=== PATIENT | female | born 1990 | race Two or more races ===

== ENCOUNTER 2020-08-27 15:20 | Emergency (ER) | payer BC, OTHER ==
[~2020-08-27] VITALS: Ht 149.9 cm; Wt 72.6 kg
[2020-08-27] MEDS ORDERED: ASPirin 81 mg TAB PO ONE (16:15)
[2020-08-27 16:56] LABS: Basophils # (auto) 0.1 10 ^3/uL (0-0.2); Eosinophils # (auto) 0.2 10 ^3/uL (0-0.8); Eosinophils % (auto) 1.5 % (0.0-7.0); Hematocrit 42.5 % (36.0-46.0); Hemoglobin 14.5 g/dL (12.2-16.2); Lymphocytes # (auto) 2.7 10 ^3/uL (0.4-5.4); Lymphocytes % (auto) 21.6 % (10.0-50.0); Mean Corpuscular Hgb Conc. 34.1 g/dL (32.0-36.0); Mean Corpuscular Volume 85.1 fL (80.0-100.0); Monocytes # (auto) 0.7 10 ^3/uL (0-1.3); Monocytes % (auto) 5.4 % (0.0-12.0); Neutrophils # (auto) 8.9 10 ^3/uL (1.6-8.6); Neutrophils % (auto) 70.5 % (37.0-80.0); Nucleated Red Blood Cells % 0.1 %; Platelet Count (auto) 412 10^3/uL (140-450); Red Cell Distribution Width 13.3 % (11.8-14.3); White Blood Cell 12.5 10^3/uL (4.4-10.8)
[2020-08-27 17:15] LABS: Alanine Aminotransferase 34 U/L (13-56); Anion Gap 4 (5-15); Blood Urea Nitrogen 11 mg/dL (7-18); Calcium 8.8 mg/dL (8.5-10.1); Carbon Dioxide 27 mmol/L (21-32); Chloride 108 mmol/L (98-107); Glucose 93 mg/dL (74-106); Potassium 3.6 mmol/L (3.5-5.1); Sodium 139 mmol/L (136-145)
[2020-08-27 17:20] LABS: Alkaline Phosphatase 93 U/L (45-117); Aspartate Aminotransferase 13 U/L (15-37); Bilirubin, Total 0.3 mg/dL (0.2-1.0); GFR African American 150 mL/min; GFR Non-African American 124 mL/min; Total Protein 7.6 g/dL (6.4-8.2)
[2020-08-27 18:13] VITALS: BP 116/59
== END 2020-08-27 18:36 | disposition home or self-care (01) ==
LOC: ER 15:20
DX: R00.2 Palpitations (principal)
CPT/HCPCS: 36415; 80053; 84443; 84484; 85025; 93005

== ENCOUNTER 2021-06-26 20:53 | Emergency (ER) | payer SELFPAY ==
[~2021-06-26] VITALS: Ht 149.9 cm; Wt 74.8 kg
[2021-06-26 21:32] LABS: Basophils # (auto) 0 10 ^3/uL (0-0.2); Basophils % (auto) 0.4 % (0.0-2.0); Eosinophils # (auto) 0 10 ^3/uL (0-0.8); Eosinophils % (auto) 0.5 % (0.0-7.0); Hematocrit 41.5 % (36.0-46.0); Hemoglobin 14.5 g/dL (12.2-16.2); Lymphocytes # (auto) 0.5 10 ^3/uL (0.4-5.4); Lymphocytes % (auto) 4.8 % (10.0-50.0); Mean Corpuscular Volume 82.7 fL (80.0-100.0); Monocytes # (auto) 0.4 10 ^3/uL (0-1.3); Monocytes % (auto) 3.5 % (0.0-12.0); Neutrophils # (auto) 9.7 10 ^3/uL (1.6-8.6); Neutrophils % (auto) 90.8 % (37.0-80.0); Nucleated Red Blood Cells % 0.1 %; Red Blood Cells 5.01 10^6/uL (4.0-5.20); Red Cell Distribution Width 13.3 % (11.8-14.3); White Blood Cell 10.6 10^3/uL (4.4-10.8)
[2021-06-26 21:55] LABS: Albumin 3.9 g/dL (3.4-5.0); Calcium 8.3 mg/dL (8.5-10.1); Potassium 3.6 mmol/L (3.5-5.1)
[2021-06-26 22:00] LABS: BUN/Creatinine Ratio 17.6; Bilirubin, Total 0.4 mg/dL (0.2-1.0); Total Protein 7.4 g/dL (6.4-8.2)
[2021-06-27 00:17] VITALS: BP 118/71
[2021-06-27] MEDS ORDERED: PRED20TA2 PO (00:23)
[2021-06-27] MEDS ORDERED: AZIT250T9 PO (00:23)
[2021-06-27] MEDS ORDERED: ALBUAER3 IN (00:23)
== END 2021-06-27 00:39 | disposition home or self-care (01) ==
LOC: ER 20:55 → EEVIPCON 20:55 → ER 06-27 00:39
DX: R07.89 Other chest pain (principal); J20.9 Acute bronchitis, unspecified; J90 Pleural effusion, not elsewhere classified; Z90.710 Acquired absence of both cervix and uterus
CPT/HCPCS: 36415; 71260; 74177; 80053; 83690; 84484; 85025; 93005

== ENCOUNTER 2021-11-22 02:38 | Emergency (ER) | payer BC ==
[~2021-11-22] VITALS: Ht 149.9 cm; Wt 81.8 kg
[~2021-11-22 02:38] MED LIST: ALBUAER3 IN; AZIT250T9 PO; PRED20TA2 PO
[2021-11-22] MEDS ORDERED: SODIUM CHLORIDE 0.9% 1,000 ML IV ONE (03:30)
[2021-11-22] MEDS ORDERED: HYDROmorphone HCL 2 MG/ML VL/or syr IV ONE (03:30)
[2021-11-22] MEDS ORDERED: ONDANSETRON HCL 4 MG/2 ML VIAL IV ONE ×2 (03:30→05:15)
[2021-11-22 05:11] LABS: Basophils # (auto) 0.1 10 ^3/uL (0-0.2); Basophils % (auto) 0.9 % (0.0-2.0); Eosinophils # (auto) 0.1 10 ^3/uL (0-0.8); Eosinophils % (auto) 0.9 % (0.0-7.0); Hematocrit 41.7 % (36.0-46.0); Hemoglobin 13.9 g/dL (12.2-16.2); Lymphocytes % (auto) 16.3 % (10.0-50.0); Mean Corpuscular Hgb Conc. 33.4 g/dL (32.0-36.0); Monocytes # (auto) 0.5 10 ^3/uL (0-1.3); Monocytes % (auto) 4.3 % (0.0-12.0); Neutrophils # (auto) 9.4 10 ^3/uL (1.6-8.6); Neutrophils % (auto) 77.6 % (37.0-80.0); Red Blood Cells 4.97 10^6/uL (4.0-5.20); Red Cell Distribution Width 13.5 % (11.8-14.3); White Blood Cell 12.2 10^3/uL (4.4-10.8)
[2021-11-22] MEDS ORDERED: diazePAM 5 MG TAB PO ONE (05:15)
[2021-11-22 05:31] LABS: Albumin 4.5 g/dL (3.4-5.0); BUN/Creatinine Ratio 20.9; Calcium 9.2 mg/dL (8.5-10.1); Potassium 3.7 mmol/L (3.5-5.1)
[2021-11-22 05:34] LABS: Bilirubin, Total 0.4 mg/dL (0.2-1.0); Total Protein 7.7 g/dL (6.4-8.2)
[2021-11-22 07:35] VITALS: BP 125/73
== END 2021-11-22 07:05 | disposition home or self-care (01) ==
LOC: ER 02:38 → EEVIPCON 02:38 → ER 07:05
DX: G43.909 Migraine, unspecified, not intractable, without status migrainosus (principal); Z90.710 Acquired absence of both cervix and uterus
CPT/HCPCS: 36415; 70450; 80053; 85025; 96361; 96374; 96375; 96376; 99284; J1170; J2405; J7030

== ENCOUNTER 2021-12-27 02:08 | Emergency (ER) | payer BC ==
[~2021-12-27] VITALS: Ht 149.9 cm; Wt 86.9 kg
[2021-12-27 02:35] VITALS: BP 130/57
[2021-12-27] MEDS ORDERED: ONDANSETRON ODT 4 MG TAB PO ONE (03:00)
[2021-12-27] MEDS ORDERED: KETOROLAC TROMETH 30 MG/ML 1ML VIAL IV ONE (03:00)
== END 2021-12-27 03:28 | disposition home or self-care (01) ==
LOC: ER 02:08
DX: G44.209 Tension-type headache, unspecified, not intractable (principal); Z90.710 Acquired absence of both cervix and uterus
CPT/HCPCS: 96374; 99283; J1885; Q0162

== ENCOUNTER 2022-01-20 01:44 | Emergency (ER) | payer BC ==
[~2022-01-20] VITALS: Ht 149.9 cm; Wt 81.0 kg
[2022-01-20 01:45] VITALS: BP 123/86
[2022-01-20] MEDS ORDERED: methylPREDNISolone SOD SUCC 125 MG/2 ML VL IM ONE (04:45)
[2022-01-20] MEDS ORDERED: cefTRIAXone SOD 1,000 MG VL IM ONE (04:45)
[2022-01-20] MEDS ORDERED: DOXY-286 PO (04:49)
[2022-01-20] MEDS ORDERED: PRED20TA2 PO (04:49)
== END 2022-01-20 05:24 | disposition home or self-care (01) ==
LOC: ER 01:46 → EEVIPCON 01:46 → ER 05:24
DX: J20.9 Acute bronchitis, unspecified (principal)
CPT/HCPCS: 71045; 96372; 99284; J0696; J2930

== ENCOUNTER 2022-06-26 02:26 | Emergency (ER) | payer BC ==
[~2022-06-26] VITALS: Ht 149.9 cm; Wt 88.4 kg
[~2022-06-26 02:26] MED LIST changes: +DOXY-286 PO
[2022-06-26 02:49] LABS: Basophils # (auto) 0.1 10 ^3/uL (0-0.2); Basophils % (auto) 0.9 % (0.0-2.0); Eosinophils # (auto) 0.1 10 ^3/uL (0-0.8); Eosinophils % (auto) 0.7 % (0.0-7.0); Hematocrit 42.2 % (36.0-46.0); Hemoglobin 14.4 g/dL (12.2-16.2); Lymphocytes # (auto) 3.6 10 ^3/uL (0.4-5.4); Lymphocytes % (auto) 23.5 % (10.0-50.0); Mean Corpuscular Hemoglobin 28.8 pg (28.0-32.0); Mean Corpuscular Hgb Conc. 34.2 g/dL (32.0-36.0); Mean Corpuscular Volume 84.2 fL (80.0-100.0); Monocytes # (auto) 0.7 10 ^3/uL (0-1.3); Monocytes % (auto) 4.7 % (0.0-12.0); Neutrophils # (auto) 10.7 10 ^3/uL (1.6-8.6); Neutrophils % (auto) 70.2 % (37.0-80.0); Nucleated Red Blood Cells % 0.1 %; Red Blood Cells 5.01 10^6/uL (4.0-5.20); Red Cell Distribution Width 13.2 % (11.8-14.3); White Blood Cell 15.3 10^3/uL (4.4-10.8)
[2022-06-26 03:08] LABS: Albumin 4.2 g/dL (3.4-5.0); BUN/Creatinine Ratio 21.1; Calcium 9.9 mg/dL (8.5-10.1); Magnesium 2.3 mg/dL (1.6-2.6)
[2022-06-26 03:11] LABS: Bilirubin, Total 0.3 mg/dL (0.2-1.0); Total Protein 7.5 g/dL (6.4-8.2)
[2022-06-26] MEDS ORDERED: IOHEXOL 350 MG/ML 100ML IJ ONE (06:02)
[2022-06-26] MEDS ORDERED: KETOROLAC TROMETH 30 MG/ML 1ML VIAL IV ONE (07:15)
[2022-06-26 08:38] VITALS: BP 136/77
== END 2022-06-26 08:44 | disposition home or self-care (01) ==
LOC: EEVIPCON 02:26 → ER 02:26
DX: R07.89 Other chest pain (principal); D72.829 Elevated white blood cell count, unspecified; Z90.710 Acquired absence of both cervix and uterus; Z88.6 Allergy status to analgesic agent; Z79.899 Other long term (current) drug therapy
CPT/HCPCS: 36415; 71045; 71275; 80053; 83735; 83880; 84484; 85025; 85379; 93005; 96374; 99285; J1885; Q9967

== ENCOUNTER 2022-08-21 00:33 | Emergency (ER) | payer BC ==
[~2022-08-21] VITALS: Ht 149.9 cm; Wt 89.6 kg
[2022-08-21] MEDS ORDERED: predniSONE 20 MG TAB PO ONE (01:00)
[2022-08-21] MEDS ORDERED: ACYCLOVIR 400 MG TAB PO ONE (01:00)
[2022-08-21] MEDS ORDERED: SODIUM CHLORIDE 0.9% 1,000 ML IV ONE (01:00)
[2022-08-21] MEDS ORDERED: IOHEXOL 350 MG/ML 100ML IJ ONE (01:05)
[2022-08-21 01:12] LABS: Basophils # (auto) 0.1 10 ^3/uL (0-0.2); Basophils % (auto) 1.1 % (0.0-2.0); Eosinophils # (auto) 0.2 10 ^3/uL (0-0.8); Eosinophils % (auto) 1.7 % (0.0-7.0); Hematocrit 41.9 % (36.0-46.0); Hemoglobin 14.4 g/dL (12.2-16.2); Lymphocytes # (auto) 3.5 10 ^3/uL (0.4-5.4); Lymphocytes % (auto) 28.2 % (10.0-50.0); Mean Corpuscular Hgb Conc. 34.4 g/dL (32.0-36.0); Mean Corpuscular Volume 84.2 fL (80.0-100.0); Monocytes # (auto) 0.6 10 ^3/uL (0-1.3); Monocytes % (auto) 4.6 % (0.0-12.0); Neutrophils % (auto) 64.4 % (37.0-80.0); Nucleated Red Blood Cells % 0.2 %; Red Blood Cells 4.98 10^6/uL (4.0-5.20); Red Cell Distribution Width 13.1 % (11.8-14.3); White Blood Cell 12.4 10^3/uL (4.4-10.8)
[2022-08-21 01:27] LABS: Albumin 4.2 g/dL (3.4-5.0); BUN/Creatinine Ratio 21.4 (10.0-20.0); Calcium 9.4 mg/dL (8.5-10.1); Potassium 3.8 mmol/L (3.5-5.1)
[2022-08-21 01:30] LABS: Bilirubin, Total 0.3 mg/dL (0.2-1.0); Total Protein 7.6 g/dL (6.4-8.2)
[2022-08-21] MEDS ORDERED: [UNRECOGNIZED DRUG - CODE] EX (02:22)
[2022-08-21] MEDS ORDERED: PRED20TA2 PO (02:22)
[2022-08-21] MEDS ORDERED: VALA500T33 PO (02:22)
[2022-08-21 03:50] VITALS: BP 137/68
[2022-08-21 03:54] LABS: Urine Bacteria NONE SEEN /hpf (None Seen); Urine Blood Negative /uL (Negative); Urine Specific Gravity 1.033 (1.001-1.035); Urine WBC 4 /hpf (0 - 5)
== END 2022-08-21 04:03 | disposition home or self-care (01) ==
LOC: ER 00:33 → EEVIPCON 00:33 → ER 03:50
DX: G51.0 Bell's palsy (principal); Z90.710 Acquired absence of both cervix and uterus
CPT/HCPCS: 36415; 70496; 71045; 80053; 81001; 82962; 84484; 85025; 96360; 99285; J7030; J7512; Q9967

== ENCOUNTER 2023-10-02 01:43 | Inpatient (IN) | payer BC ==
[~2023-10-02] VITALS: Ht 149.9 cm; Wt 81.8 kg
[2023-10-02] VITALS (7 sets, daily range): BP systolic 109–123; BP diastolic 60–80; PULSE 70–92; RESP 15–18; TEMP 97.6–98.3; O2SAT 90–99
[~2023-10-02 01:43] MED LIST changes: +AZIT-43 PO; -AZIT250T9 PO; +COR10OTS OT; +METO-281 PO; +NITR-87 PO; +VALA500T33 PO; +ZOFR4T PO; +[UNRECOGNIZED DRUG - CODE] EX
[2023-10-02 02:44] LABS: Basophils # (auto) 0.2 10 ^3/uL (0-0.2); Basophils % (auto) 1.2 % (0.0-2.0); Eosinophils # (auto) 0.2 10 ^3/uL (0-0.8); Eosinophils % (auto) 1.6 % (0.0-7.0); Hematocrit 40.8 % (36.0-46.0); Hemoglobin 13.8 g/dL (12.2-16.2); Lymphocytes % (auto) 24.2 % (10.0-50.0); Mean Corpuscular Hemoglobin 28.3 pg (28.0-32.0); Mean Corpuscular Volume 83.4 fL (80.0-100.0); Monocytes # (auto) 0.7 10 ^3/uL (0-1.3); Monocytes % (auto) 5.7 % (0.0-12.0); Neutrophils # (auto) 8.3 10 ^3/uL (1.6-8.6); Neutrophils % (auto) 67.3 % (37.0-80.0); Red Blood Cells 4.89 10^6/uL (4.0-5.20); Red Cell Distribution Width 13.3 % (11.8-14.3); White Blood Cell 12.4 10^3/uL (4.4-10.8)
[2023-10-02 02:55] LABS: Chloride 106 mmol/L (98-107); Potassium 3.9 mmol/L (3.5-5.1); Sodium 139 mmol/L (136-145)
[2023-10-02 02:56] LABS: Anion Gap 5 (5-15); Carbon Dioxide 28 mmol/L (20-30)
[2023-10-02 03:01] LABS: BUN/Creatinine Ratio 13.1 (10.0-20.0); Blood Urea Nitrogen 8 mg/dL (9-23); Glucose 98 mg/dL (74-106)
[2023-10-02] MEDS: IBUPROFEN 600 MG TAB PO ONE (04:02)
[2023-10-02] MEDS ORDERED: ONDANSETRON HCL 4 MG/2 ML VIAL IV PRN (04:45)
[2023-10-02] MEDS ORDERED: NITROGLYCERIN 0.4 MG SL TAB SL PRN (04:45)
[2023-10-02] MEDS ORDERED: HYDROcodone-ACET 5/325MG TAB PO PRN (04:45)
[2023-10-02] MEDS ORDERED: MORPHINE SULFATE INJ 2 MG/ml SYRG IV PRN (04:45)
[2023-10-02] MEDS ORDERED: DOCUSATE SOD 100 MG CAP PO PRN (04:45)
[2023-10-02] MEDS: SODIUM CHLOR 0.9% PF (SALINE LOCK) 10ML VIAL/SYR IV SCH (05:12)
[2023-10-02] MEDS ORDERED: MECLIZINE HCL 25 MG TAB PO PRN (06:15)
[2023-10-02] MEDS: cefTRIAXone 1GM/50ML D5W 50 ML IV ONE (06:45)
[2023-10-02 08:20] LABS: Urine Bacteria None Seen /hpf (None Seen)
[2023-10-02 08:30] LABS: Urine Blood Negative /uL (Negative); Urine Clarity Clear (Clear); Urine Color Light-Yellow (Yellow); Urine Mucus FEW (None Seen); Urine Protein, UAD Negative (Negative); Urine Urobilinogen Normal (Negative); Urine WBC 1 /hpf (0 - 5)
[2023-10-02] MEDS: IBUPROFEN 600 MG TAB PO PRN (17:20)
[2023-10-03] MEDS ORDERED: cefTRIAXone 1GM/50ML D5W 50 ML IV SCH (06:00)
== END 2023-10-02 21:20 | disposition home or self-care (01) | DRG 310 ==
LOC: EEVIPCON 01:43 → ER 01:43 → TELE 04:44 → TELE-WESTW 13:59
PROVIDERS: ADMIT Nurse Practitioner Family; ATTEND Nurse Practitioner Family
DX: I49.1 Atrial premature depolarization (principal); J45.909 Unspecified asthma, uncomplicated; D72.829 Elevated white blood cell count, unspecified; E66.9 Obesity, unspecified; G51.0 Bell's palsy; Z90.710 Acquired absence of both cervix and uterus; Z68.36 Body mass index [BMI] 36.0-36.9, adult
CPT/HCPCS: 36415; 80048; 81001; 82962; 83735; 83880; 84443; 84484; 85025; 93005; 93306; G0378

== ENCOUNTER 2024-08-04 04:23 | Emergency (ER) | payer BC ==
[2024-08-04 04:25] VITALS: PULSE 88; RESP 18; TEMP 98.4; O2SAT 98
--- NOTE | 2024-08-04 04:38 | ED.PDOC ---
History of Present Illness HPI Comments 34-year-old female who came to ER for headaches. Patient has been having recurrent episodes of headaches, diffuse, pressure, associated with nausea and photophobia. Motrin and Tylenol taken providing temporary relief. Persistence brought the patient to come to the ER Chief Complaint: Headaches Time Seen by MD: 04:37 Primary Care Provider: MICHAEL Reviewed Notes: Nurses Notes Allergies: Coded Allergies: No Known Drug Allergy (Verified Allergy, Unknown, 08/04/24) Home Meds Active Scripts Zzuhoxhf-Evgqnvcfz-Qg (Otic) (Cortisporin Otic Soln) [address], 4 DROP OT QID for 7 Days, #1 BOTTLE 0 Refills Prov:MARIANELA JAMESP 07/18/23 Metoclopramide Hcl (Reglan) 10 Mg Tab, 10 MG PO TIDPRN PRN for 10 Days, #30 TAB Prov:MARY MAURICE DO 04/25/23 Metoclopramide Hcl (Reglan) 10 Mg Tab, 10 MG PO Q6HP PRN, #20 TAB Prov:ELENA DIXON PAC 04/25/23 Ondansetron Odt 4MG Tab (ZOFRAN PO) 4 Mg Tb, 4 MG PO Q6HP PRN, #20 TAB ODT TAB-DISSOLVE IN MOUTH, THEN SWALLOW Prov:ELENA DIXON PAC 04/25/23 Nitrofurantoin Monohydrate Mac (Macrobid) 100 Mg Cap, 100 MG PO BID for 7 Days, #14 CAP 0 Refills Prov:ERVIN LOWE 08/28/22 Valacyclovir Hcl (Valacyclovir Hcl) 500 Mg Tab, 2 TAB PO TID for 7 Days, #42 TAB 11 Refills Prov:JESIKA DOUGLAS MD 08/21/22 Prednisone (Prednisone) 20 Mg Tab, 60 MG PO DAILY for 7 Days, #21 MG Prov:JESIKA DOUGLAS MD 08/21/22 Eyelid Lubricants (Tears Again Advanced Eyel) 1 Liq Liq, 1 DROP EX Q2HP PRN for 7 Days, #1 BOTTLE Prov:JESIKA DOUGLAS MD 08/21/22 Prednisone (Prednisone) 20 Mg Tab, 20 MG PO BID for 5 Days, #10 MG 0 Refills Prov:VARGAS MEDRANO 01/20/22 Doxycycline Hyclate (DOXYCYCLINE HYCLATE) 100 Mg Tab, 1 TAB PO BID for 7 Days, #14 TAB 0 Refills Prov:VARGAS MEDRANO 01/20/22 Albuterol Sulfate (VENTOLIN MDI) 90 Mcg Ih, 90 MCG IN Q6HP PRN for 15 Days, #1 MCG Prov:ANA HIDALGO MD 06/27/21 Azithromycin (Azithromycin) 250 Mg Tab, 250 MG PO DAILY for 6 Days, #6 CAP Prov:ANA HIDALGO MD 06/27/21 Prednisone (Prednisone) 20 Mg Tab, 20 MG PO TID for 4 Days, #12 MG Prov:ANA HIDALGO MD 06/27/21 Information Source: Patient Mode of Arrival: Ambulatory Severity: Moderate Timing: Hours Duration: Intermittent Past Medical History PAST MEDICAL HISTORY: Denies Past Medical History (Other): Gilbert's palsy Surgical History: Hysterectomy 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 Family History Family History: Reviewed,noncontributory to illness Social History Smoker: Non-Smoker Alcohol: Denies ETOH Use Drugs: Denies Drug Use Lives In: Home Constitutional: denies: chills, diaphoresis, fatigue, fever, malaise, sweats, weakness, others EENTM: reports: blurred vision; denies: double vision, ear bleeding, ear discharge, ear drainage, ear pain, ear ringing, eye pain, eye redness, hearing loss, mouth pain, mouth swelling, nasal discharge, nose bleeding, nose congestion, nose pain, photophobia, tearing, throat pain, throat swelling, voice changes, others Respiratory: denies: cough, hemoptysis, orthopnea, SOB at rest, shortness of breath, SOB with excertion, stridor, wheezing, others Cardiovascular: denies: chest pain, dizzy spells, diaphoresis, Dyspnea on exertion, edema, irregular heart beat, left arm pain, lightheadedness, palpitations, PND, syncope, others Gastrointestinal: reports: nausea; denies: abdomen distended, abdominal pain, blood streaked bowels, constipated, diarrhea, dysphagia, difficulty swallowing, hematemesis, melena, poor appetite, poor fluid intake, rectal bleeding, rectal pain, vomiting, others Genitourinary: denies: abnormal vagina bleeding, burning, dyspareunia, dysuria, flank pain, frequency, hematuria, incontinence, pain, , vagina discharge, urgency, others Neurological: reports: headache; denies: dizziness, fainting, left sided numbness, left sided weakness, numbness, paresthesia, pre-existing deficit, right sided numbness, right sided weakness, seizure, speech problems, tingling, tremors, weakness, others Musculoskeletal: denies: back pain, gout, joint pain, joint swelling, muscle pain, muscle stiffness, neck pain, others Integumetry: denies: bruises, change in color, change in hair/nails, dryness, laceration, lesions, lumps, rash, wounds, others Allergic/Immunocompromised: denies: Difficulty Healing, Frequent Infections, Hives, Itching, others Hematologic/Lymphatic: denies: anemia, blood clots, easy bleeding, easy bruising, swollen glands, others Endocrine: denies: excessive hunger, excessive sweating, excessive thirst, excessive urination, flushing, intolerance to cold, intolerance to heat, unexplained weight gain, unexplained weight loss, others Psychiatric: denies: anxiety, bipolar disorder, depression, hopeless, panic disorder, schizophrenia, sleepless, suicidal, others Physical Exam General Appearance: No Apparent Distress, Normal HEENT: Normal ENT Inspection, Pharynx Normal, TMs Normal Neck: Full Range of Motion, Non-Tender, Normal, Normal Inspection Respiratory: Chest Non-Tender, Lungs Clear, No Accessory Muscle Use, No Respiratory Distress, Normal Breath Sounds Cardiovascular: No Edema, No JVD, No Murmur, No Gallop, Normal Peripheral Pulses, Regular Rate/Rhythm Breast Exam: Deferred Gastrointestinal: No Organomegaly, Non Tender, No Pulsatile Mass, Normal Bowel Sounds, Soft Genitalia: Deferred Pelvic: Deferred Rectal: Deferred Extremities: No calf tenderness, Normal capillary refill, Normal inspection, Normal range of motion, Non-tender, No pedal edema Musculoskeletal : Apperance: Normal Neurologic: Alert, industrial automation engineer II-XII nml as Tested, No Motor Deficits, Normal Affect, Normal Mood, No Sensory Deficits Cerebellar Function: Normal Reflexes: Normal Skin: Dry, Normal Color, Warm Lymphatic: No Adenopathy Was a procedure done? Was a procedure done?: No Differential Dx Considerations may include: Migraine headaches, tension headaches, X-Ray, Labs, Meds, VS Vital Signs Date Time Temp Pulse Resp B/P (MAP) Pulse Ox O2 Delivery O2 Flow Rate FiO2 08/04/24 05:01 83 16 108/45 (66) 96 08/04/24 04:55 83 13 115/46 (69) 96 08/04/24 04:25 98.4 88 18 141/74 (96) 98 98.4 08/04/24 04:25 88 18 98 Room Air* 0 21 Current Medications Medications (Trade) Dose Ordered Sig/Nba Route Start Time Stop Time Status Last Admin Sodium Chloride 1,000 ml @ 1,000 mls/hr Q1H ONCE IV 08/04/24 04:30 08/04/24 05:29 DC 08/04/24 04:39 Metoclopramide HCl (Reglan Injection) 10 mg ONCE ONCE IV 08/04/24 04:30 08/04/24 04:31 DC 08/04/24 04:39 Ketorolac Tromethamine (Toradol Injection) 15 mg ONCE ONCE IV 08/04/24 04:30 08/04/24 04:31 DC 08/04/24 04:39 Acetaminophen (Tylenol Tablet) 650 mg ONCE ONCE PO 08/04/24 04:30 08/04/24 04:31 DC 08/04/24 04:45 Dexamethasone Sodium Phosphate (Decadron Injection) 10 mg ONCE ONCE IV 08/04/24 04:30 08/04/24 04:31 DC 08/04/24 04:39 Magnesium Sulfate/ Dextrose 100 ml @ 100 mls/hr Q1H IV 08/04/24 04:30 08/04/24 06:29 08/04/24 05:38 Time of 1ST Reevaluation: 04:31 Reevaluation 1ST: Unchanged Patient Education/Counseling: Diagnosis, Treatment Family Education/Counseling: No Family Present Departure 1 Departure Time of Disposition: 05:57 (Patient likely with a migraine. Patient is feeling better would like to go home. We will discharge patient home with outpatient follow up) Impression: Primary Impression: Migraine headache Qualified Codes: G43.109 - Migraine with aura, not intractable, without status migrainosus Disposition: 01 HOME / SELF CARE / HOMELESS Condition: Stable Referrals: FERNANDO GALAN MD Additional Instructions: You likely had a migraine. You received medications in the ER. You can take tylenol and motrin as needed for pain. You should stay well rested and well hydrated. It is important to follow up with your regular doctor within one week. If your symptoms worsen or you have any other concerns then please return to the ER. Discharged With: Self Critical Care Note Critical Care Time?: No Stability Stability form required: No Heart Score Heart Score: Heart Score Response (Comments) Value History N/A 0 EKG N/A 0 Age N/A 0 Risk Factors N/A 0 Troponin N/A 0 Total 0 I personally scribed for TRESSA LEE MD ([facility]) on 08/04/24 at 04:38. Electronically submitted by Sunil Beach ([employer]). I personally scribed for TRESSA LEE MD ([facility]) on 08/04/24 at 04:43. Electronically submitted by Sunil Beach ([facility]). TRESSA LEE MD Aug 04, 2024 04:38
[2024-08-04] MEDS: KETOROLAC TROMETH 30 MG/ML 1ML VIAL IV ONE (04:39)
[2024-08-04] MEDS: DexAMETHasone SOD PHOS 10MG/1ML VIAL INJ IV ONE (04:39)
[2024-08-04] MEDS: SODIUM CHLORIDE 0.9% 1,000 ML IV ONE (04:39)
[2024-08-04] MEDS: METOCLOPRAMIDE HCL 5MG/ml INJ 2ml VIAL IV ONE (04:39)
[2024-08-04] MEDS: MAGNESIUM SULFATE 1GM/100ML 100 ML IV SCH (04:44)
[2024-08-04] MEDS: ACETAMINOPHEN 325 MG TAB PO ONE (04:45)
[2024-08-04 05:01] VITALS: BP 108/45; PULSE 83; RESP 16; O2SAT 96
== END 2024-08-04 06:48 | disposition home or self-care (01) ==
LOC: EEVIPCON 04:23 → ER 04:23
DX: G43.109 Migraine with aura, not intractable, without status migrainosus (principal); Z90.710 Acquired absence of both cervix and uterus
CPT/HCPCS: 96365; 96366; 96375; 99284; J1100; J1885; J2765; J3475; J7030; 96361

== ENCOUNTER 2024-08-26 09:00 | Emergency (ER) | payer BC ==
[~2024-08-26] VITALS: Ht 149.9 cm; Wt 90.0 kg
--- NOTE | 2024-08-26 09:19 | ECG ---
[facility] Test Date: 2024-08-26 Test Time: 09:06:44 Pat Name: FERNANDO WILSON Department: ER Room: Gender: F Wedger Machine: RUBIA : 1990 Requested By: YAIMA MENON Order Number: [id number] Reading MD: Ramone Brown Measurements Intervals [place] Rate: 101 P: 55 SD: 163 QRS: 55 QRSD: 93 T: 9 QT: 325 QTc: 422 Interpretive Statements Sinus tachycardia Borderline T abnormalities, inferior leads Electronically Signed On 08-30-2024 12:09:57 PDT by Ramone Brown Please click the below link to view image of tracing.
[2024-08-26 09:29] VITALS: TEMP 99
[2024-08-26 09:40] VITALS: PULSE 90; RESP 13; O2SAT 96
[2024-08-26] MEDS: SODIUM CHLORIDE 0.9% 1,000 ML IV ONE ×2 (09:45→10:00)
[2024-08-26] MEDS: LORazepam 2MG/ML-1ML VIAL IV ONE (10:00)
[2024-08-26] MEDS: ONDANSETRON HCL 4 MG/2 ML VIAL IV ONE (10:00)
--- NOTE | 2024-08-26 10:24 | DVH ---
CT HEAD WITHOUT CONTRAST INDICATION: dizzy EXAM DATE: 08/26/2024 09:36 AM COMPARISON: HEAD WITHOUT CONTRAST on DOS: 11/22/21 RADIATION DOSE: CTDIvol: 53.47 mGy, DLP: 863.9 mGy*cm PROCEDURE: CT scans of the head were obtained from the vertex to the skull base. Sagittal and coronal reconstructions were provided. All CT scans at this medical facility are performed using dose modulation techniques as appropriate t o a performed exam including the following: Automated exposure control was utilized; adjustment of th e MA and/or KV according to patient size; and use of iterative reconstruction technique. FINDINGS: There is sulcal and ventricular prominence. The brainshows normal morphology and hinojosa-whi te matter differentiation, without intracranial hemorrhage, extra-axial fluid collection, mass effect or acute large vessel infarct. The ventricles are normal in size. The basal cisterns are patent. The skull and visible facial bones are intact. The paranasal sinuses, mastoid air cells and middle ear c avities are well-aerated. The soft tissues of the scalp are unremarkable. IMPRESSION: No acute intracranial abnormality.
--- NOTE | 2024-08-26 10:27 | ED.PDOC ---
History of Present Illness HPI Comments 34F presents to the ER w/ prior MHx of Gilbert's palsy;Hysterectomy and the c/c of Dizziness. Pt reports that she started to get dizzy after getting off of work yesterday and that it worsens when she moves. Denies chills, fever, N/V/D, SOB, CP, Ringing in the Ears. No other associated symptoms, modifiers, recent injuries or sick contacts present at this time. Chief Complaint: Dizziness Time Seen by MD: 09:40 Primary Care Provider: MICHAEL Reviewed Notes: Nurses Notes, Medications, Allergies Allergies: Coded Allergies: No Known Drug Allergy (Verified Allergy, Unknown, 08/04/24) Home Meds Active Scripts Mrovkemx-Rkcpadmqc-Oc (Otic) (Cortisporin Otic Soln) [address], 4 DROP OT QID for 7 Days, #1 BOTTLE 0 Refills Prov:MARIANELA JAMESP 07/18/23 Metoclopramide Hcl (Reglan) 10 Mg Tab, 10 MG PO TIDPRN PRN for 10 Days, #30 TAB Prov:MARY MAURICE DO 04/25/23 Metoclopramide Hcl (Reglan) 10 Mg Tab, 10 MG PO Q6HP PRN, #20 TAB Prov:ELENA DIXON PAC 04/25/23 Ondansetron Odt 4MG Tab (ZOFRAN PO) 4 Mg Tb, 4 MG PO Q6HP PRN, #20 TAB ODT TAB-DISSOLVE IN MOUTH, THEN SWALLOW Prov:ELENA DIXON PAC 04/25/23 Nitrofurantoin Monohydrate Mac (Macrobid) 100 Mg Cap, 100 MG PO BID for 7 Days, #14 CAP 0 Refills Prov:ERVIN LOWE 08/28/22 Valacyclovir Hcl (Valacyclovir Hcl) 500 Mg Tab, 2 TAB PO TID for 7 Days, #42 TAB 11 Refills Prov:JESIKA DOUGLAS MD 08/21/22 Prednisone (Prednisone) 20 Mg Tab, 60 MG PO DAILY for 7 Days, #21 MG Prov:JESIKA DOUGLAS MD 08/21/22 Eyelid Lubricants (Tears Again Advanced Eyel) 1 Liq Liq, 1 DROP EX Q2HP PRN for 7 Days, #1 BOTTLE Prov:JESIKA DOUGLAS MD 08/21/22 Prednisone (Prednisone) 20 Mg Tab, 20 MG PO BID for 5 Days, #10 MG 0 Refills Prov:VARGAS MEDRANO 01/20/22 Doxycycline Hyclate (DOXYCYCLINE HYCLATE) 100 Mg Tab, 1 TAB PO BID for 7 Days, #14 TAB 0 Refills Prov:VARGAS MEDRANO 01/20/22 Albuterol Sulfate (VENTOLIN MDI) 90 Mcg Ih, 90 MCG IN Q6HP PRN for 15 Days, #1 MCG Prov:ANA HIDALGO MD 06/27/21 Azithromycin (Azithromycin) 250 Mg Tab, 250 MG PO DAILY for 6 Days, #6 CAP Prov:ANA HIDALGO MD 06/27/21 Prednisone (Prednisone) 20 Mg Tab, 20 MG PO TID for 4 Days, #12 MG Prov:ANA HIDALGO MD 06/27/21 Information Source: Patient Mode of Arrival: Ambulatory Severity: Moderate Timing: Hours Duration: Since onset, Hours Prehospital treatment: None Past Medical History Past Medical History (Other): Gilbert's Palsy Surgical History: Hysterectomy 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 OPERATOR 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 Family History Family History: Reviewed,noncontributory to illness, Unknown Social History Smoker: Non-Smoker Alcohol: Denies ETOH Use Drugs: Denies Drug Use Lives In: Home Constitutional: denies: chills, diaphoresis, fatigue, fever, malaise, sweats, weakness, others EENTM: denies: blurred vision, double vision, ear bleeding, ear discharge, ear drainage, ear pain, ear ringing, eye pain, eye redness, hearing loss, mouth pain, mouth swelling, nasal discharge, nose bleeding, nose congestion, nose pain, photophobia, tearing, throat pain, throat swelling, voice changes, others Respiratory: denies: cough, hemoptysis, orthopnea, SOB at rest, shortness of b reath, SOB with excertion, stridor, wheezing, others Cardiovascular: denies: chest pain, dizzy spells, diaphoresis, Dyspnea on exertion, edema, irregular heart beat, left arm pain, lightheadedness, palpitations, PND, syncope, others Gastrointestinal: denies: abdomen distended, abdominal pain, blood streaked bowels, constipated, diarrhea, dysphagia, difficulty swallowing, hematemesis, melena, nausea, poor appetite, poor fluid intake, rectal bleeding, rectal pain, vomiting, others Genitourinary: denies: abnormal vagina bleeding, burning, dyspareunia, dysuria, flank pain, frequency, hematuria, incontinence, pain, , vagina discharge, urgency, others Neurological: reports: dizziness; denies: fainting, headache, left sided numbness, left sided weakness, numbness, paresthesia, pre-existing deficit, right sided numbness, right sided weakness, seizure, speech problems, tingling, tremors, weakness, others Musculoskeletal: denies: back pain, gout, joint pain, joint swelling, muscle pain, muscle stiffness, neck pain, others Integumetry: denies: bruises, change in color, change in hair/nails, dryness, laceration, lesions, lumps, rash, wounds, others Allergic/Immunocompromised: denies: Difficulty Healing, Frequent Infections, Hives, Itching, others Hematologic/Lymphatic: denies: anemia, blood clots, easy bleeding, easy brui sing, swollen glands, others Endocrine: denies: excessive hunger, excessive sweating, excessive thirst, ex cessive urination, flushing, intolerance to cold, intolerance to heat, unexplained weight gain, unexplained weight loss, others Psychiatric: denies: anxiety, bipolar disorder, depression, hopeless, panic disorder, schizophrenia, sleepless, suicidal, others All Other Systems: Reviewed and Negative Physical Exam General Appearance: Moderate Distress, Normal HEENT: Normal ENT Inspection, Pharynx Normal, TMs Normal Neck: Full Range of Motion, Non-Tender, Normal, Normal Inspection Respiratory: Chest Non-Tender, Lungs Clear, No Accessory Muscle Use, No Respiratory Distress, Normal Breath Sounds Cardiovascular: No Edema, No JVD, No Murmur, No Gallop, Normal Peripheral Pulses, Regular Rate/Rhythm Breast Exam: Deferred Gastrointestinal: No Organomegaly, Non Tender, No Pulsatile Mass, Normal Bowel Sounds, Soft Genitalia: Deferred Pelvic: Deferred Rectal: Deferred Extremities: No calf tenderness, Normal capillary refill, Normal inspection, Normal range of motion, Non-tender, No pedal edema Musculoskeletal : Apperance: Normal Neurologic: Alert, court administrator II-XII nml as Tested, No Motor Deficits, Normal Affect, Normal Mood, No Sensory Deficits Cerebellar Function: NOT DONE Reflexes: NOT DONE Skin: Dry, Normal Color, Warm Peripheral Pulses: 3+ Radial (R), 3+ Radial (L) Lymphatic: No Adenopathy Was a procedure done? Was a procedure done?: No EKG EKG : Pulse Rate (adult): 101 [place]: Normal Cardiac Rhythm: ST Block: None Hypertrophy: None ST: Normal Differential Dx Considerations may include: Vertigo Electrolyte imbalance X-Ray, Labs, Meds, VS Vital Signs Date Time Temp Pulse Resp B/P (MAP) Pulse Ox O2 Delivery O2 Flow Rate FiO2 08/26/24 11:00 84 22 115/65 (82) 96 08/26/24 10:27 101 08/26/24 09:40 90 13 96 Room Air* 0 21 08/26/24 09:29 99.0 90 13 120/68 (85) 96 99.0 08/26/24 09:22 99.0 103 20 127/79 (95) 93 99.0 08/26/24 09:06 101 Lab Test 08/26/24 11:59 08/26/24 11:20 08/26/24 10:13 Range/Units Potassium Level 3.8 5.3 H 3.5-5.1 mmol/L White Blood Count 10.5 4.4-10.8 10^3/uL Red Blood Count 5.00 4.0-5.20 10^6/uL Hemoglobin 14.3 12.2-16.2 g/dL Hematocrit 41.6 36.0-46.0 % Mean Corpuscular Volume 83.2 80.0-100.0 fL Mean Corpuscular Hemoglobin 28.5 28.0-32.0 pg Mean Corpuscular Hemoglobin Concent 34.3 32.0-36.0 g/dL Red Cell Distribution Width 13.4 11.8-14.3 % Platelet Count 388 140-450 10^3/uL Mean Platelet Volume 7.7 6.9-10.8 fL Neutrophils (%) (Auto) 59.7 37.0-80.0 % Lymphocytes (%) (Auto) 31.7 10.0-50.0 % Monocytes (%) (Auto) 4.9 0.0-12.0 % Eosinophils (%) (Auto) 2.7 0.0-7.0 % Basophils (%) (Auto) 1.0 0.0-2.0 % Neutrophils # (Auto) 6.2 1.6-8.6 10 ^3/uL Lymphocytes # (Auto) 3.3 0.4-5.4 10 ^3/uL Monocytes # (Auto) 0.5 0-1.3 10 ^3/uL Eosinophils # (Auto) 0.3 0-0.8 10 ^3/uL Basophils # (Auto) 0.1 0-0.2 10 ^3/uL Nucleated Red Blood Cells 0.1 % Sodium Level 141 136-145 mmol/L Chloride Level 107 98-107 mmol/L Carbon Dioxide Level 27 20-31 mmol/L Anion Gap 7 5-15 Blood Urea Nitrogen 12 9-23 mg/dL Creatinine 0.68 0.550-1.02 mg/dL Glomerular Filtration Rate Calc 119 >90 mL/min BUN/Creatinine Ratio 17.6 10.0-20.0 Serum Glucose 93 74-106 mg/dL Calcium Level 9.5 8.7-10.4 mg/dL Current Medications Medications (Trade) Dose Ordered Sig/Nba Route Start Time Stop Time Status Last Admin Lorazepam (Ativan Inj) 1 mg ONCE ONCE IV 08/26/24 09:45 08/26/24 09:46 DC 08/26/24 10:00 Ondansetron HCl (Zofran) 4 mg ONCE ONCE IV 08/26/24 09:45 08/26/24 09:46 DC 08/26/24 10:00 Sodium Chloride 1,000 ml @ 1,000 mls/hr Q1H ONCE IV 08/26/24 09:45 08/26/24 10:44 DC 08/26/24 10:00 PROCEDURE(s): HWOCT - HEAD WITHOUT CONTRAST REASON: dizzy ORDER NUMBER(s): [id number], ACCESSION NUMBER(s): [id number] CT HEAD WITHOUT CONTRAST INDICATION: dizzy EXAM DATE: 08/26/2024 09:36 AM COMPARISON: HEAD WITHOUT CONTRAST on DOS: 11/22/21 RADIATION DOSE: CTDIvol: 53.47 mGy, DLP: 863.9 mGy*cm PROCEDURE: CT scans of the head were obtained from the vertex to the skull base. Sagittal and coronal reconstructions were provided. All CT scans at this medical facility are performed using dose modulation techniques as appropriate to a performed exam including the following: Automated exposure control was utilized; adjustment of the MA and/or KV according to patient size; and use of iterative reconstruction technique. FINDINGS: There is sulcal and ventricular prominence. The brainshows normal morphology and hinojosa-white matter differentiation, without intracranial hemorrhage, extra-axial fluid collection, mass effect or acute large vessel infarct. The ventricles are normal in size. The basal cisterns are patent. The skull and visible facial bones are intact. The paranasal sinuses, mastoid air cells and middle ear cavities are well-aerated. The soft tissues of the scalp are unremarkable. IMPRESSION: No acute intracranial abnormality. Patient alert. Complaining of dizziness. Vitals stable. Answering questions. CT of the head reviewed does not show any acute changes. Was given Ativan. Establish intravenous access. Was given fluids. Was given Zofran. Potassium slightly elevated. Possibly hemolysis. Was given prescription of meclizine. Reviewed her history. Explained to the patient. Continue monitoring. Was told to follow up with her primary care physician. Was told to come back if there is any problem. Time of 1ST Reevaluation: 10:10 Reevaluation 1ST: Unchanged Patient Education/Counseling: Diagnosis, Treatment, Prognosis Family Education/Counseling: No Family Present Departure 1 Departure Time of Disposition: 11:40 Impression: Primary Impression: Autonomic disorder Disposition: 01 HOME / SELF CARE / HOMELESS Condition: Good e-Prescriptions Meclizine HCl (Meclizine 25) 25 Mg Tab 25 MG PO DAILY for 10 Days, #10 TAB Prov: YAIMA MENON MD 08/26/24 Discharged With: Self Critical Care Note Critical Care Time?: Yes (45 min-critical care time only) Critical care comment: Monitor potassium level Stability Stability form required: No Heart Score Heart Score: Heart Score Response (Comments) Value History N/A 0 EKG N/A 0 Age N/A 0 Risk Factors N/A 0 Troponin N/A 0 Total 0 I personally scribed for YAIMA MENON MD ([email or web address]) on 08/26/24 at 10:27. Electronically submitted by Patrick Durant ([email or web address]). I personally scribed for YAIMA MENON MD ([email or web address]) on 08/26/24 at 10:30. Electronically submitted by Patrick Durant ([email or web address]). YAIMA MENON MD August 26, 2024 10:27
[2024-08-26 11:04] LABS: Anion Gap 7 (5-15); Calcium 9.5 mg/dL (8.7-10.4); Carbon Dioxide 27 mmol/L (20-31)
[2024-08-26 11:09] LABS: Glucose 93 mg/dL (74-106)
[2024-08-26 11:12] LABS: BUN/Creatinine Ratio 17.6 (10.0-20.0); Sodium 141 mmol/L (136-145)
[2024-08-26 11:13] LABS: Blood Urea Nitrogen 12 mg/dL (9-23); Chloride 107 mmol/L (98-107); Potassium 5.3 mmol/L (3.5-5.1)
[2024-08-26 11:52] LABS: Basophils # (auto) 0.1 10 ^3/uL (0-0.2); Eosinophils # (auto) 0.3 10 ^3/uL (0-0.8); Eosinophils % (auto) 2.7 % (0.0-7.0); Hematocrit 41.6 % (36.0-46.0); Hemoglobin 14.3 g/dL (12.2-16.2); Lymphocytes # (auto) 3.3 10 ^3/uL (0.4-5.4); Lymphocytes % (auto) 31.7 % (10.0-50.0); Mean Corpuscular Hemoglobin 28.5 pg (28.0-32.0); Mean Corpuscular Hgb Conc. 34.3 g/dL (32.0-36.0); Mean Corpuscular Volume 83.2 fL (80.0-100.0); Monocytes # (auto) 0.5 10 ^3/uL (0-1.3); Monocytes % (auto) 4.9 % (0.0-12.0); Neutrophils # (auto) 6.2 10 ^3/uL (1.6-8.6); Neutrophils % (auto) 59.7 % (37.0-80.0); Nucleated Red Blood Cells % 0.1 %; Platelet Count (auto) 388 10^3/uL (140-450); Red Cell Distribution Width 13.4 % (11.8-14.3); White Blood Cell 10.5 10^3/uL (4.4-10.8)
[2024-08-26] MEDS ORDERED: MECL1TAB42 PO (13:47)
[2024-08-26 14:00] VITALS: BP 111/63; PULSE 92; RESP 23; O2SAT 96
[2024-08-26] MEDS: PROMETHAZINE HCL 6.25 MG/5 ML ORAL SYRUP PO ONE (16:19)
[2024-08-26] MEDS ORDERED: PROM25TA10 PO (17:21)
== END 2024-08-26 17:45 | disposition home or self-care (01) ==
LOC: ER 09:00 → EEVIPCON 09:00 → ER 17:45
DX: G90.9 Disorder of the autonomic nervous system, unspecified (principal); Z90.710 Acquired absence of both cervix and uterus; Z79.52 Long term (current) use of systemic steroids
CPT/HCPCS: 36415; 70450; 80048; 82947; 84132; 93005; 96361; 96374; 96375; 99285; J2060; J2405; J7030